=== PATIENT | male | born 1995 ===

== ENCOUNTER 2017-07-21 22:29 | Emergency (ER) | payer SELFPAY ==
[2017-07-21 22:43] VITALS: TEMP 98.2
[2017-07-21 22:59] LABS: URINE BILIRUBIN NEGATIVE (NEGATIVE); URINE BLOOD NEGATIVE (NEGATIVE); URINE COLOR Yellow (YELLOW); URINE GLUCOSE (UA) NORMAL (Normal); URINE KETONE NEGATIVE (NEGATIVE); URINE LEUKOCYTE ESTERASE NEG Leu/uL (Negative); URINE PROTEIN NEGATIVE (NEGATIVE); URINE UROBILINOGEN NORMAL mg/dL (0.2-1.0); WBC URINE < 1 /hpf (0-5)
--- NOTE | 2017-07-21 23:33 | US ---
EXAM: US Scrotum EXAM DATE/TIME: 07/21/2017 10:49 PM CLINICAL HISTORY: 21 years old, male; Pain; Scrotum pain; Additional info: Swelling and pain TECHNIQUE: Real-time ultrasound of the scrotum with color Doppler and image documentation. COMPARISON: There are no prior studies for comparison. FINDINGS: Right: Right testicle measures approximately 4.9 x 2.8 x 3.7 cm. Echotexture is uniform. There is no testicular mass. Right epididymal head measures 10 x 6 mm. There is expected intratesticular blood flow. There is a very small hydrocele. There is mild skin thickening Left: Left testicle measures approximately 4.9 x 2.6 x 3.2 cm. There are no testicular masses. Echotexture is uniform. Left epididymal head measures 13 x 10 mm. There is expected intratesticular blood flow. There is very small hydrocele. There is mild skin thickening IMPRESSION: No torsion; mild skin and suggests possible cellulitis
--- NOTE | 2017-07-22 00:02 | C.PDOC ---
History Of Present Illness <Herbert Miller - Last Filed: 07/21/17 23:49> <Duncan Ba - Last Filed: 07/22/17 02:04> 21M c/o right testicle pain, right side abd pain, low back pain intermittent for 5 days. denies f/c, n/v, or dysuria. denies psh or sig pmh. (Herbert Miller) <Herbert Miller - Last Filed: 07/21/17 23:49> <Duncan Ba - Last Filed: 07/22/17 02:04> Time Seen by Provider: 07/21/17 22:49 Chief Complaint (Nursing): Male Genitourinary Past Medical History Family History: States: Other Other Family History: nc - Social History Hx Alcohol Use: Yes Hx Substance Use: No - Immunization History Hx Influenza Vaccination: No Hx Pneumococcal Vaccination: No <Herbert Miller - Last Filed: 07/21/17 23:49> Vital Signs: Last Vital Signs Temp 98.2 F 07/21/17 22:40 Pulse 62 07/21/17 22:40 Resp 16 07/21/17 22:40 BP 131/92 H 07/21/17 22:40 Pulse Ox 100 07/22/17 00:03 Review Of Systems Constitutional: Negative for: Fever, Chills Cardiovascular: Negative for: Chest Pain Respiratory: Negative for: Cough, Shortness of Breath Gastrointestinal: Positive for: Abdominal Pain. Negative for: Nausea, Vomiting Genitourinary: Positive for: Scrotal Pain. Negative for: Dysuria, Hematuria, Penile Discharge <Herbert Miller - Last Filed: 07/21/17 23:49> Physical Exam - Physical Exam Appears: Well, Non-toxic, No Acute Distress Skin: Warm, Dry Nose: No Epistaxis Oral Mucosa: Moist Cardiovascular: Rhythm Regular Respiratory: No Decreased Breath Sounds, No Accessory Muscle Use Gastrointestinal/Abdominal: Soft, Tenderness (RLQ), No Distention, No Guarding, No Rebound Male Genital: Testicular Tenderness (right), No Testicular Swelling, No Scrotal Swelling Neurological/Psych: Oriented x3 <Herbert Miller - Last Filed: 07/21/17 23:49> ED Course And Treatment O2 Sat by Pulse Oximetry: 100 <Herbert Miller - Last Filed: 07/21/17 23:49> - Laboratory Results Result Diagrams: 07/22/17 00:16 07/22/17 00:16 Pulse Ox Interpretation: Normal Reevaluation Time: 02:02 Reassessment Condition: Improved <Duncan Ba - Last Filed: 07/22/17 02:04> Medical Decision Making <Herbert Miller - Last Filed: 07/21/17 23:49> <Duncan Ba - Last Filed: 07/22/17 02:04> Medical Decision Making: Upon provider reevaluation patient is feeling better, is medically stable, and requires no further treatment in the ED at this time. Patient will be discharged home with Rx for clindamycin . Counseling was provided and all questions were answered regarding diagnosis and need for follow up with the referred clinic. There is agreement to discharge plan. Return if symptoms persist or worsen. (Duncan Ba) Disposition <Herbert Miller - Last Filed: 07/21/17 23:49> Counseled Patient/Family Regarding: Studies Performed, Diagnosis, Need For Followup, Rx Given - Disposition Disposition Time: 01:00 <Duncan Ba - Last Filed: 07/22/17 02:04> - Disposition Referrals: [facility] [Outside] [facility] [Outside] Disposition: HOME/ ROUTINE Condition: FAIR Prescriptions: Clindamycin [Cleocin] 300 mg PO QID #28 cap Instructions: Cellulitis (DC) Forms: Gen Discharge Inst Jamaican Print Language: JAPANESE - Clinical Impression Clinical Impression: Abdominal pain, Cellulitis
[2017-07-22 00:22] LABS: BASO % 0.3 % (0.0-2.0); EOS # 0.1 K/uL (0.0-0.7); EOS % 1.6 % (0.0-4.0); HEMATOCRIT 40.5 % (35.0-51.0); LYMPH # 1.9 K/uL (1.0-4.3); LYMPH % 26.8 % (20.0-40.0); MEAN CELL VOLUME 87.7 fL (80.0-94.0); MEAN CORPUSCULAR HEMOGLOBIN 31.5 pg (27.0-31.0); MEAN CORPUSCULAR HGB CONC 35.9 g/dL (33.0-37.0); MEAN PLATELET VOLUME 9.1 fL (7.2-11.7); MONO # 0.8 K/uL (0.0-0.8); MONO % 10.8 % (0.0-10.0); RED CELL DISTRIBUTION WIDTH 12.3 % (11.5-14.5)
[2017-07-22 00:33] LABS: ALB/GLOB RATIO 1.3 (1.0-2.1); ALKALINE PHOSPHATASE 71 U/L (38-126); ALT/SGPT 37 U/L (21-72); AST/SGOT 16 U/L (17-59); BILIRUBIN,TOTAL 0.4 mg/dL (0.2-1.3); BLOOD UREA NITROGEN 18 mg/dL (9-20); CALCIUM 8.9 mg/dl (8.6-10.4); CARBON DIOXIDE 25 mmol/L (22-30); CHLORIDE 101 mmol/L (98-107); GFR AFRICAN-AMERICAN > 60; GLUCOSE,RANDOM 84 mg/dL (75-110); POTASSIUM 3.7 mmol/L (3.6-5.2); SODIUM 135 mmol/L (132-148); TOTAL PROTEIN 7.8 g/dL (6.3-8.3)
[2017-07-22] MEDS ORDERED: Iodixanol 320 MG/ML 100 ML BOTTLE IV ONE (01:24)
--- NOTE | 2017-07-22 01:59 | CT ---
EXAM: CT Abdomen and Pelvis With Intravenous Contrast EXAM DATE/TIME: 07/21/2017 11:48 PM CLINICAL HISTORY: 21 years old, male; Pain; Abdominal pain TECHNIQUE: Axial computed tomography images of the abdomen and pelvis with intravenous contrast. All CT scans at this facility use one or more dose reduction techniques, viz.: automated exposure control; ma/kV adjustment per patient size (including targeted exams where dose is matched to indication; i.e. head); or iterative reconstruction technique. Coronal and sagittal reformatted images were created and reviewed. CONTRAST: 100 mL of [id number] administered intravenously. COMPARISON: There are no prior studies for comparison. FINDINGS: Lower thorax: Heart size is normal. Lung bases are clear ABDOMEN: Liver: unremarkable Gallbladder and bile ducts: unremarkable Pancreas: unremarkable Spleen: unremarkable Adrenals: unremarkable Kidneys and ureters: unremarkable Stomach and bowel: Stomach is almost empty. Rotation is normal. Small bowel is mildly distended with fluid and air. There is scattered air-fluid levels. There is no obstruction. Ileocecal region is unremarkable. Appendix and terminal ileum are unremarkable. Moderate stool and air in the colon. There is scattered diverticulosis. Appendix: See stomach and bowel PELVIS: Bladder: unremarkable Reproductive: Seminal vesicles and prostate are unremarkable. ABDOMEN and PELVIS: Intraperitoneal space: There is no free air or free fluid. Bones/joints: There are no acute osseous abnormalities. Soft tissues: There is a small fat containing umbilical hernia. Vasculature: Vascular there are multiple mildly enlarged mesenteric nodes. There is no para-aortic adenopathy. IMPRESSION: No acute solid visceral abnormality; no CT findings of appendicitis or diverticulitis; distended small bowel more suggestive of ileus obstruction; mildly prominent right lower quadrant mesenteric nodes Additional findings as described above.
[2017-07-22 02:11] VITALS: BP 120/80; PULSE 80; RESP 14; O2SAT 98
== END 2017-07-22 02:11 | disposition home or self-care (01) ==
LOC: C.ER 22:29
DX: R10.9 Unspecified abdominal pain (principal); L03.90 Cellulitis, unspecified
CPT/HCPCS: 74177; 76870; 80053; 81001; 85025; 99285; Q9967